=== PATIENT | female | born 1950 | race Two or more races ===

== ENCOUNTER → 2022-03-06 | Outpatient (CLI) | payer MEDICARE | LOC: MAMMO 08:29 | PROVIDERS: ATTEND Family Medicine | DX: Z12.31 Encounter for screening mammogram for malignant neoplasm of breast (principal) | CPT/HCPCS: 77067 ==

== ENCOUNTER → 2025-02-22 | Outpatient (REF) | payer MEDICARE | LOC: MAMMO 08:00 | PROVIDERS: ATTEND Family Medicine | DX: Z12.31 Encounter for screening mammogram for malignant neoplasm of breast (principal) | CPT/HCPCS: 77067 ==